=== PATIENT | male | born 1995 | race Two or more races ===

== ENCOUNTER 2020-06-22 17:49 | Emergency (ER) | payer OTHER ==
[~2020-06-22] VITALS: Ht 167.6 cm; Wt 81.6 kg
[2020-06-22 18:18] VITALS: BP 136/66
== END 2020-06-22 19:22 | disposition home or self-care (01) ==
LOC: ER 17:54
DX: U07.1 COVID-19 (principal)

== ENCOUNTER 2020-08-23 14:15 | Emergency (ER) | payer OTHER ==
[~2020-08-23] VITALS: Ht 167.6 cm; Wt 86.2 kg
[2020-08-23 14:37] VITALS: BP 113/76
--- NOTE | 2020-08-23 15:06 | NUR ---
Patient discharged to home in stable condition. Written and verbal after care instructions given. Patient verbalizes understanding of instruction.
== END 2020-08-23 15:06 | disposition home or self-care (01) ==
LOC: ER 14:18
DX: L30.9 Dermatitis, unspecified (principal)